=== PATIENT | male | born 1990 | race Caucasian/White ===

== ENCOUNTER 2021-04-15 09:00 | Emergency (ER) | payer OTHER ==
[~2021-04-15] VITALS: Ht 175.3 cm; Wt 97.5 kg
[2021-04-15] MEDS ORDERED: LIDOCAINE-MPF 1%, 5ML INFIL ONE (09:30)
--- NOTE | 2021-04-15 10:00 | NUR ---
Pt walked back from lobby to room at this time. Assumed care of patient. PT steady upon ambulation. No apparent distress noted at this time. This is a 30 yo male c/o abscess to perineal area. Call light within reach. Will cont to monitor pt.
--- NOTE | 2021-04-15 11:00 | NUR ---
ERMD Law at bedside for eval.
[2021-04-15] MEDS ORDERED: LIDOCAINE-MPF 1%, 5ML ONE (11:20)
--- NOTE | 2021-04-15 12:05 | NUR ---
LUCY Navarro at bedside for I&D of abscess.
[2021-04-15] MEDS ORDERED: OXYcodone/APAP 5/325MG TABLET ONE (12:36)
[2021-04-15] MEDS ORDERED: ONDANSETRON ODT 4 MG ONE (12:38)
--- NOTE | 2021-04-15 12:45 | NUR ---
Pt medicated as ordered for 02/15 pain.
[2021-04-15 13:24] VITALS: BP 144/87
[2021-04-15] MEDS ORDERED: ONDANSETRON ODT 4 MG PO ONE (13:30)
[2021-04-15] MEDS ORDERED: OXYcodone/APAP 5/325MG TABLET PO ONE (13:30)
== END 2021-04-15 13:28 | disposition home or self-care (01) ==
LOC: ED 10:43
DX: L02.215 Cutaneous abscess of perineum (principal)
CPT/HCPCS: 46050; 99284; Q0162

== ENCOUNTER 2021-04-16 10:32 | Emergency (ER) | payer BC, OTHER ==
[~2021-04-16] VITALS: Ht 175.3 cm; Wt 79.0 kg
--- NOTE | 2021-04-16 11:50 | NUR ---
PT REPORTS ABSCESS TO GROIN AREA (NOT VISUALIZED BY RN AT THIS TIME). REPORTS MINIMAL DRAINAGE TODAY AND MINIMAL PAIN. ERP TO SEE. Addendum: 04/16/21 at 1151 by HBENSON PT REPORTS PACKING TO GROIN AREA (NOT VISUALIZED BY RN AT THIS TIME). REPORTS MINIMAL DRAINAGE TODAY AND MINIMAL PAIN. USING INDIGO PAD. ERP TO SEE.
--- NOTE | 2021-04-16 12:29 | NUR ---
WOUND WAS IRRIGATED BY [facility]. WILL BE RE-PACKED BY ALIZE AYALA.
--- NOTE | 2021-04-16 12:49 | NUR ---
ALIZE PA AT TO RE-PACK GROIN ABSCESS.
[2021-04-16 13:00] VITALS: BP 119/57
--- NOTE | 2021-04-16 13:10 | NUR ---
D/C INSTRUCTIONS RV'WD WITH PT. PT INSTRUCTED TO RETURN TO ED IN 2 DAYS FOR RECHECK. AMBULATED OUT OF ED WITHOUT DIFFICULTY.
== END 2021-04-16 13:09 | disposition home or self-care (01) ==
LOC: ED 13:00
DX: Z48.01 Encounter for change or removal of surgical wound dressing (principal); F17.210 Nicotine dependence, cigarettes, uncomplicated
CPT/HCPCS: 99282